=== PATIENT | male | born 1990 | race Caucasian/White ===

== ENCOUNTER 2017-08-30 07:37 | Emergency (ER) | payer SELFPAY ==
[2017-08-30] MEDS ORDERED: Promethazine HCl 25 MG/ML VIAL ONE (07:51)
[2017-08-30 07:54] LABS: #Basophils 0.2 thou/uL (0.0-0.2); #Eosinphils 0.1 thou/uL (0.0-0.7); #Lymphocytes 1.7 thou/uL (1.20-3.40); #Monocytes 0.8 thou/uL (0.11-0.59); #Neutrophils 13.1 thou/uL (1.40-6.50); %Basophils 1.1 % (0.0-1.0); %Eosinophils 0.5 % (0.0-10.0); %Lymphocytes 10.4 % (21.0-51.0); %Monocytes 5.1 % (0.0-10.0); %Neutrophils 82.9 % (42.0-75.0); Hemoglobin 17.5 g/dL (14.0-18.0); Mean Corpuscular HGB CONC 34.2 g/dL (32.0-36.0); Mean Corpuscular Hemoglobin 30.2 pg (27.0-31.0); Mean Corpuscular Volume 88.3 fl (80.0-94.0); Mean Platelet Volume 9.5 fL (7.4-10.4); Platelet Count 227 thou/uL (130-400); RBC Distribution Width 12.4 % (11.5-14.5); Red Blood Cell (RBC) Count 5.82 mill/uL (4.70-6.10); White Blood Cell (WBC) Count 15.8 thou/uL (4.8-10.8)
[2017-08-30 08:10] LABS: ALT (SGPT) 57 U/L (8-55); AST (SGOT) 31 U/L (5-34); Albumin 5.1 g/dL (3.5-5.0); Alkaline Phosphatase 66 U/L (40-150); Anion Gap 15 mmol/L (10-20); BUN (Urea Nitrogen) 17 mg/dL (8.9-20.6); Bilirubin, Total 0.7 mg/dL (0.2-1.2); Calc. Creatinine Clearance 0 mL/min (70-130); Carbon Dioxide 31 mmol/L (22-29); Chloride 97 mmol/L (98-107); Estimated GFR-MDRD Greater than 90; Globulin 3.1 g/dL (2.4-3.5); Glucose 130 mg/dL (70-105); Lipase 13 U/L (8-78); Potassium 4.1 mmol/L (3.5-5.1); Protein, Total 8.2 g/dL (6.0-8.3); Sodium 139 mmol/L (136-145)
[2017-08-30] MEDS ORDERED: Ketorolac Tromethamine 30 MG/ML VIAL ONE (08:16)
[2017-08-30] MEDS ORDERED: Morphine 4 MG/ML Carpuject ONE (08:52)
[2017-08-30] MEDS ORDERED: Iopamidol 370 76% 100 ML VIAL ONE (09:00)
[2017-08-30] MEDS ORDERED: Iopamidol 370 76% 50 ML VIAL FS ONE (09:00)
--- NOTE | 2017-08-30 11:43 | CT ---
CT ABDOMEN AND PELVIS WITH IV AND ENTERIC CONTRAST: INDICATIONS: Nausea and vomiting. FINDINGS: There is marked wall thickening involving the distal gastric body and gastric antrum. The visualized proximal duodenum appears within normal limits. No free air or free fluid is demonstrated. 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 There is slight hypertrophy of the left kidney. No free fluid or ly mphadenopathy is evident. The spleen and liver appear within normal limits. The adrenal glands and pancreas appear within normal limits. There is a normal appendix in the right lower quadrant. The bladder, rectum, and perirectal soft tissues are unremarkable. No free fluid is identified. No acute osseous abnormality is evident. IMPRESSION: 1. Marked wall thickening involving the distal gastric body and gastric antrum is suspicious for gas tritis that may be related to peptic ulcer disease. Inflammatory disorder, such as Crohn's, cannot b e entirely excluded. Recommend gastroenterology followup. 2. Agenesis of the right kidney. POS: [facility]
== END 2017-08-30 10:45 | disposition home or self-care (01) ==
LOC: BURERS 07:37
DX: K29.70 Gastritis, unspecified, without bleeding (principal); F31.9 Bipolar disorder, unspecified; F17.210 Nicotine dependence, cigarettes, uncomplicated
CPT/HCPCS: 74177; 80053; 83690; 85025; 96365; 96375; A4216; J1885; J2270; J2550